=== PATIENT | female | born 1955 | race Caucasian/White ===

== ENCOUNTER 2017-11-06 05:26 | Inpatient (IN) | payer OTHER, BC ==
[2017-11-06] MEDS: CEFAZOLIN 2 GM/50 ML (PMX) 50 ML IVPB (06:00)
[2017-11-06] MEDS ORDERED: CEFAZOLIN 2 GM/50 ML (PMX) 50 ML IVPB (06:00)
[2017-11-06] MEDS: GABAPENTIN 300 MG CAP PO ×2 (06:09→20:40)
[2017-11-06] MEDS: DEXAMETHASONE 1 MG TAB PO (06:09)
[2017-11-06] MEDS: traMADol 50 MG TAB PO (06:09)
[2017-11-06] MEDS ORDERED: TRIAMCINOLONE ACET 40 MG/ML INJ (06:59)
[2017-11-06] MEDS ORDERED: SOD CHLORIDE 0.9% 100 ML, TRANEXAMIC ACID 3,000 MG IRR (07:00)
[2017-11-06] MEDS ORDERED: BUPIVACAINE 0.5% (SDV) 30 ML, morphine SULFATE (PF) 8 MG, EPINEPHrine 0.3 MG, KETOROLAC... IRR (07:00)
[2017-11-06] MEDS ORDERED: CEFAZOLIN 1 GM INJ (07:00)
[2017-11-06] MEDS ORDERED: TRANEXAMIC ACID 1,000 MG in DEXTROSE 5% 100 ML IVPB (07:00)
[2017-11-06] MEDS ORDERED: MIDAZOLAM 1 MG/ML 2 ML INJ (07:08)
[2017-11-06] MEDS ORDERED: FAMOTIDINE 20 MG INJ (07:20)
[2017-11-06] MEDS ORDERED: ONDANSETRON 4 MG INJ (07:20)
[2017-11-06] MEDS ORDERED: DEXAMETHASONE 4 MG/ML 1 ML INJ (07:20)
[2017-11-06] MEDS ORDERED: PROPOFOL 20 ML (07:20)
[2017-11-06] MEDS ORDERED: FENTAnyl 50 MCG/ML VIAL (07:20)
[2017-11-06] MEDS ORDERED: LIDOCAINE 2% (SDV) 5 ML INJ (07:20)
[2017-11-06] MEDS ORDERED: EPHEDrine SULFATE 50 MG/5 ML SYG (07:52)
[2017-11-06] MEDS ORDERED: FENTAnyl 50 MCG/ML VIAL IV (08:30)
[2017-11-06] MEDS ORDERED: LABETALOL HCL 20MG INJ IV (08:30)
[2017-11-06] MEDS ORDERED: PROCHLORPERAZINE 10 MG INJ IV (08:30)
[2017-11-06] MEDS ORDERED: DIPHENHYDRAMINE 50 MG INJ IV ×2 (08:30→10:00)
[2017-11-06] MEDS ORDERED: hydrALAzine 20 MG INJ IV (08:30)
[2017-11-06] MEDS: POLYMYXIN/BACITRACIN 1L IRRIG (08:48)
[2017-11-06] MEDS: THROMBIN 5000 UNIT VIAL (08:48)
[2017-11-06] MEDS: CA CHLORIDE 10% 10 ML SYRINGE (08:48)
[2017-11-06] MEDS ORDERED: OXYCODONE/ACETAMINOPHEN (5/325) TAB PO (10:00)
[2017-11-06] MEDS ORDERED: morphine 2 MG INJ IV (10:00)
[2017-11-06] MEDS ORDERED: ONDANSETRON 4 MG INJ IV (10:00)
[2017-11-06] MEDS ORDERED: MAGNESIUM HYDROXIDE 30ML CUP PO (10:00)
[2017-11-06] MEDS ORDERED: ACETAMINOPHEN 500 MG TAB PO (10:00)
[2017-11-06] MEDS ORDERED: ZOLPIDEM 5 MG TAB PO (10:00)
[2017-11-06] MEDS ORDERED: KETOROLAC 15 MG INJ IV (10:00)
[2017-11-06] MEDS: MEPERIDINE 25 MG INJ IV (11:01)
[2017-11-06] MEDS: CEFAZOLIN 1 GM/50 ML (PMX) 50 ML IVPB ×2 (11:03→17:32)
[2017-11-06] MEDS: LACTATED RINGER'S 1,000 ML IV ×2 (11:04→17:37)
[2017-11-06 11:09] LABS: ADD MAN DIFF? NO
[2017-11-06] MEDS: HYDROmorphONE (0.2 MG/ML) 10ML SYG IV ×3 (11:13→11:40)
[2017-11-06 11:16] LABS: BASOPHIL # 0.1 10^3/ul (0.0-0.1); BASOPHILS % 0.3 % (0.0-2.0); EOSINOPHILS % 0.1 % (0.0-7.0); HEMATOCRIT 37.4 % (37.0-47.0); HEMOGLOBIN 12.9 g/dl (12.0-16.0); LYMPHOCYTES # 0.9 10^3/ul (0.8-2.9); LYMPHOCYTES % 5.6 % (15.0-51.0); MEAN CORPUSCULAR HEMOGLOBIN 30.3 pg (29.0-33.0); MEAN CORPUSCULAR HGB CONC 34.5 g/dl (32.0-37.0); MEAN CORPUSCULAR VOLUME 87.8 fl (82.0-101.0); MEAN PLATELET VOLUME 10.1 fl (7.4-10.4); MONOCYTE # 0.2 10^3/ul (0.3-0.9); MONOCYTES % 1.2 % (0.0-11.0); NEUTROPHIL # 13.9 10^3/ul (1.6-7.5); NEUTROPHILS % 91.6 % (39.0-77.0); PLATELET COUNT 275 10^3/UL (140-415); RED BLOOD COUNT 4.26 10^6/ul (4.20-5.40); RED CELL DISTRIBUTION WIDTH 12.2 % (11.5-14.5)
[2017-11-06 11:16] LABS: WHITE BLOOD COUNT 15.2 10^3/ul (4.8-10.8)
[2017-11-06] MEDS: TRANEXAMIC ACID 1,000 MG in DEXTROSE 5% 100 ML IV (11:23)
[2017-11-06] MEDS: ONDANSETRON 4 MG INJ IV (11:29)
[2017-11-06 11:30] LABS: HOLD TRANSMISSIONS 1
[2017-11-06] MEDS: DEXAMETHASONE 2 MG TAB PO ×2 (14:23→18:12)
[2017-11-06] MEDS: morphine 2 MG INJ IV ×2 (15:01→18:12)
[2017-11-06] MEDS: OXYCODONE/ACETAMINOPHEN (5/325) TAB PO (20:40)
[2017-11-06] MEDS: SENNA/DOCUSATE NA (8.6MG/50MG) TAB PO (20:40)
[2017-11-07] MEDS: DEXAMETHASONE 2 MG TAB PO ×2 (00:30→06:06)
[2017-11-07] MEDS: OXYCODONE/ACETAMINOPHEN (5/325) TAB PO ×3 (02:08→11:57)
[2017-11-07] MEDS: CEFAZOLIN 1 GM/50 ML (PMX) 50 ML IVPB (02:08)
[2017-11-07] MEDS: LACTATED RINGER'S 1,000 ML IV ×2 (05:09→15:55)
[2017-11-07 05:11] LABS: ADD MAN DIFF? NO
[2017-11-07 05:16] LABS: BASOPHILS % 0.2 % (0.0-2.0); HEMATOCRIT 31.4 % (37.0-47.0); HEMOGLOBIN 10.7 g/dl (12.0-16.0); LYMPHOCYTES # 0.8 10^3/ul (0.8-2.9); LYMPHOCYTES % 5.8 % (15.0-51.0); MEAN CORPUSCULAR HEMOGLOBIN 29.9 pg (29.0-33.0); MEAN CORPUSCULAR HGB CONC 34.1 g/dl (32.0-37.0); MEAN CORPUSCULAR VOLUME 87.7 fl (82.0-101.0); MEAN PLATELET VOLUME 10.6 fl (7.4-10.4); MONOCYTE # 0.6 10^3/ul (0.3-0.9); MONOCYTES % 4.1 % (0.0-11.0); NEUTROPHIL # 12.4 10^3/ul (1.6-7.5); NEUTROPHILS % 89.4 % (39.0-77.0); PLATELET COUNT 261 10^3/UL (140-415); RED BLOOD COUNT 3.58 10^6/ul (4.20-5.40); RED CELL DISTRIBUTION WIDTH 11.9 % (11.5-14.5)
[2017-11-07 05:16] LABS: WHITE BLOOD COUNT 13.9 10^3/ul (4.8-10.8)
[2017-11-07] MEDS: SENNA/DOCUSATE NA (8.6MG/50MG) TAB PO (09:38)
[2017-11-07] MEDS: ASPIRIN 81 MG TAB PO (09:38)
[2017-11-07] MEDS: MONTELUKAST 10 MG TAB PO (09:38)
[2017-11-07] MEDS: AMLODIPINE 2.5 MG TAB PO (09:39)
[2017-11-07] MEDS: HYDROCODONE/APAP (7.5/325) TAB PO (16:16)
== END 2017-11-07 17:10 | disposition home or self-care (01) | DRG 470 ==
LOC: REC 05:26 → MS1 12:30
PROVIDERS: Orthopaedic Surgery
PROC: 0SRB04A Replacement of Left Hip Joint with Ceramic on Polyethylene Synthetic Substitute, Uncemented, Open Approach (ICD-10-PCS; principal; 2017-11-06 07:00)
PROC: 3E0U33Z Introduction of Anti-inflammatory into Joints, Percutaneous Approach (ICD-10-PCS; 2017-11-06 07:00)
PROC: 3E0U3BZ Introduction of Anesthetic Agent into Joints, Percutaneous Approach (ICD-10-PCS; 2017-11-06 07:00)
DX: M16.12 Unilateral primary osteoarthritis, left hip (principal); I10 Essential (primary) hypertension; J45.909 Unspecified asthma, uncomplicated
CPT/HCPCS: 72170; 73530; 85025; 86999; 87086; 97116; 97161; 97165; 97530; 97535